=== PATIENT | male | born 1975 | race Caucasian/White ===

== ENCOUNTER 2017-05-10 14:01 | Emergency (ER) | payer OTHER ==
[2017-05-10 14:23] VITALS: BP 137/82
--- NOTE | 2017-05-10 14:48 | UC ---
UC General HPI - HPI Summary HPI Summary: The patient comes in today for: 1. Pain in "the private area": Onset: On and off for "a year." It has worsened 4 days. Palliative/provocative: Coughing/sneezing does not affect it. Sensitive to touch. Quality: Burning and pressure. Region: under foreskin Severity: 09/08 Time: Constant. Associated symptoms: Previous treatment: No topical preparations. Urination: He is able to urinate, but when the urine gets on the affected area, it eldridge. 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 - Allergy/Home Medications Allergies/Adverse Reactions: Allergies Allergy/AdvReac Type Severity Reaction Status Date / Time Aripiprazole [From Abilify] Allergy See Comment Verified 05/10/17 14:23 Home Medications: Home Medications Lisinopril TAB* [Prinivil TAB 10 MG*] 1 tab PO DAILY 05/10/17 [History Confirmed 05/10/17] PMH/Surg Hx/FS Hx/Imm Hx Previously Healthy: No Cardiovascular History: Hypertension Respiratory History: COPD, Asthma - No inhaler use on Psychological History: Anxiety, Depression - Surgical History Surgical History: None - Family History Known Family History: Positive: Hypertension, Diabetes - Social History Occupation: Unemployed Alcohol Use: None Substance Use Type: None Smoking Status (MU): Heavy Every Day Tobacco Smoker Type: Cigarettes Amount Used/How Often: 1/2ppd Review of Systems Constitutional: Negative Skin: Rash Eyes: Negative ENT: Negative Respiratory: Negative Cardiovascular: Negative Gastrointestinal: Negative All Other Systems Reviewed And Are Negative: Yes Physical Exam Triage Information Reviewed: Yes Appearance: Well-Appearing, No Pain Distress, Well-Nourished Vital Signs: Initial Vital Signs Temp 98.2 F 05/10/17 14:18 Pulse 90 05/10/17 14:18 Resp 18 05/10/17 14:18 BP 137/82 05/10/17 14:18 Pulse Ox 99 05/10/17 14:18 Vital Signs Reviewed: Yes Eyes: Positive: Conjunctiva Clear. Negative: Discharge ENT: Positive: Hearing grossly normal. Negative: Pharyngeal erythema, Nasal congestion, Nasal drainage, TM bulging, TM dull, TM red, Tonsillar swelling, Tonsillar exudate Dental: Negative: Gross Decay/Caries @, Dental Fracture @ Neck: Positive: Supple, Nontender, No Lymphadenopathy. Negative: Nuchal Rigidity Respiratory: Positive: Lungs clear, No respiratory distress, No accessory muscle use. Negative: Crackles, Wheezing Cardiovascular: Positive: RRR, No Murmur Abdomen Description: Positive: Nontender, No Organomegaly, Soft. Negative: Distended, Guarding Musculoskeletal: Positive: Strength Intact, ROM Intact, No Edema Neurological: Positive: Alert, Muscle Tone Normal Psychological: Positive: Age Appropriate Behavior, Consolable Skin: Positive: rashes - He has erythematous macular rash with satellite lesions in the skin creases in both inquinal area and the upper thighs. He did not have edema of the foreskin, but the mucosa under the foreskin was more red than usual and tender. Slight edema of the frenulum.. 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 Will treat with a topical antifungal ( ketoconazole) - Differential Dx - Multi-Symptom Provider Diagnoses: intertriginous david dermatitis (groin). mild balanitis Discharge - Discharge Plan Condition: Stable Disposition: HOME Patient Education Materials: Balanitis (ED), Skin Yeast Infection (ED) Referrals: MIKE Mota [Primary Care Provider] - 1 Week (Please see your primary care provider in about one to two weeks to see how well you are doing. If you get worse, please be seen sooner.)
== END 2017-05-10 15:09 | disposition home or self-care (01) ==
LOC: UCCORT 14:01
DX: B37.42 Candidal balanitis (principal); F17.210 Nicotine dependence, cigarettes, uncomplicated; J44.9 Chronic obstructive pulmonary disease, unspecified
CPT/HCPCS: 99202; G0463